=== PATIENT | female | born 1990 | race Caucasian/White ===

== ENCOUNTER 2018-01-10 06:23 | Emergency (ER) | payer MEDICAID ==
[~2018-01-10] VITALS: Ht 165.1 cm; Wt 65.0 kg
[~2018-01-10 06:23] MED LIST: IRON1TAB60 PO
[2018-01-10 06:26] VITALS: BP 118/83
== END 2018-01-10 08:06 | disposition home or self-care (01) ==
LOC: ED 08:04
DX: S82.65XA Nondisplaced fracture of lateral malleolus of left fibula, initial encounter for closed fracture (principal); W19.XXXA Unspecified fall, initial encounter; Y93.89 Activity, other specified; Y92.009 Unspecified place in unspecified non-institutional (private) residence as the place of occurrence of the external cause; Y99.8 Other external cause status
CPT/HCPCS: 99284

== ENCOUNTER 2018-06-14 18:55 | Emergency (ER) | payer SELFPAY ==
[~2018-06-14] VITALS: Ht 165.1 cm; Wt 66.1 kg
[2018-06-14 19:12] VITALS: BP 110/43
--- NOTE | 2018-06-14 19:25 | NUR ---
ATTEMPTED US, PT REFUSED aa
== END 2018-06-14 21:50 | disposition left against medical advice (07) ==
LOC: ED 21:40
DX: R11.2 Nausea with vomiting, unspecified (principal); R19.7 Diarrhea, unspecified; R10.30 Lower abdominal pain, unspecified
CPT/HCPCS: 99281